=== PATIENT | female | born 1945 | race Two or more races ===

== ENCOUNTER → 2018-02-09 | Outpatient (CLI) | payer OTHER | END | disposition home or self-care (01) | LOC: KCIC MRI 08:43 | DX: R51 Headache (principal); I10 Essential (primary) hypertension; E78.5 Hyperlipidemia, unspecified; Z83.71 Family history of colonic polyps | CPT/HCPCS: 70551 ==

== ENCOUNTER 2021-03-23 07:30 | Day surgery (SDC) | payer MEDICARE ==
[~2021-03-23] VITALS: Ht 154.9 cm; Wt 47.0 kg
[~2021-03-23 07:30] MED LIST: ATOR10TA PO; IV RINGERS,LACTATED 1000ML 1,000 ML IV SCH
[2021-03-23 09:01] VITALS: BP 127/64
[2021-03-23] MEDS ORDERED: PROPOFOL 10 MG/ML (20ML) VIAL. IV ONE (10:06)
[2021-03-23] MEDS ORDERED: LIDOCAINE 2% PF 5 ML VIAL. ONE (10:06)
[2021-03-23 10:24] VITALS: BP 143/68
--- NOTE | 2021-03-25 03:03 | HP ---
ADMIT DATE: 03/23/2021 REFERRING PHYSICIAN: JANNETTE Bonner. HISTORY OF PRESENT ILLNESS: A 75-year-old female whose past medical history is significant for hyperlipidemia, history of polyps ____ diarrhea or constipation. There is no melena. There is no hematochezia. No dysphagia. There is no evidence of Diana's. She is not on any present medications for it. She is otherwise without additional complaints. PAST MEDICAL HISTORY: Diana's, history of colonic polyps, hyperlipidemia. ALLERGIES: None. MEDICATIONS: Include atorvastatin daily. FAMILY HISTORY: Significant for diabetes in the father. PAST SURGICAL HISTORY: Appendectomy, tubal ligation, eye surgery. REVIEW OF SYSTEMS: Per records. PHYSICAL EXAMINATION: GENERAL: Reveals a well-nourished, well-developed female who is alert, cooperative, in no acute distress. VITAL SIGNS: Temperature is 97.4, pulse 56, respirations 20. LUNGS: Clear. CARDIOVASCULAR: Reveals an S1, S2, without S3, S4 or appreciable murmur. ABDOMEN: Reveals a soft abdomen, normal bowel sounds, without appreciable hepatosplenomegaly. EXTREMITIES: Reveals no cyanosis, clubbing or edema. IMPRESSION AND PLAN: 1. History of Diana's. Surveillance EGD is recommended at this time. Risks and benefits were previously discussed. The patient is willing to proceed. 2. History of colonic polyps. Interval colon exam is recommended. Risks and benefits discussed. The patient is willing to proceed. HU/ALAN/JUAN MANUEL DR: Eusebio TID: [id number]
--- NOTE | 2021-03-26 13:07 | PATHOLOGY ---
[facility] Accession Number: [id number] . 01 Material submitted: . PART A: esophagus - DISTAL ESOPHAGEAL BIOPSY. Modifiers: distal PART B: colon - TRANSVERSE COLON POLYP BIOPSY. Modifiers: transverse . 01 Clinical history: . HX RASHEED'S/HX, COLON POLYPS EGD/COLON . 02 Diagnosis: A. Esophageal biopsies, distal esophagus: - Segments of mildly hyperplastic squamous esophageal mucosa. . B. Colon biopsies, transverse colon polyp: - Hyperplastic polyp/prominent mucosal fold. (JPM:jones; 03/26/2021) S 03/26/2021 1155 Local . 02 Comment: Sections of the distal esophageal biopsy reveal segments of mildly hyperplastic squamous esophageal mucosa, consistent with reflux esophagitis. There is no evidence of Rasheed's change, dysplasia, or malignancy. . Sections of the transverse colon biopsy reveal segments of colonic mucosa consistent with hyperplastic polyp/prominent mucosal fold. There are no adenomatous changes or evidence of malignancy. (JPM:jones; 03/26/2021) . 02 Electronically signed: . Saeid Mchugh MD, Pathologist NPI- [id number] . 01 Gross description: . A. The specimen is received in formalin, labeled "Iam Nick, distal esophagus". It consists of multiple brown-white, irregular soft tissue fragments measuring 0.6 x 0.5 x 0.1 cm in aggregate. The specimen is entirely submitted between sponges in A1. . B. The specimen is received in formalin, labeled "Iam Nick J, transverse colon polyp". It consists of 3 brown irregular soft tissue fragments measuring 0.4 x 0.4 x 0.2 cm in aggregate. The specimen is entirely submitted between sponges in B1. (MRF; 03/23/2021) MFE/MFE 03/23/[address] [place] [address] . 02 Pathologist provided ICD-10: K63.5 . 02 CPT . 373163, [id number] Specimen Comment: A courtesy copy of this report has been sent to [phone] Specimen Comment: Report sent to DR. COOL Performed at: [address] [facility] [address] [facility] [address], [place] [id number] MD Lai Hurst MD Phone: [phone] Performed at: 02 [facility] [address], [place] [id number] MD Saeid Mchugh MD Phone: [phone]
== END 2021-03-23 10:42 | disposition home or self-care (01) ==
LOC: ENDOS 07:30
PROVIDERS: ATTEND Internal Medicine Gastroenterology
DX: Z12.11 Encounter for screening for malignant neoplasm of colon (principal); K64.0 First degree hemorrhoids; K63.5 Polyp of colon; K21.00 Gastro-esophageal reflux disease with esophagitis, without bleeding; K22.70 Barrett's esophagus without dysplasia; K31.89 Other diseases of stomach and duodenum; K63.89 Other specified diseases of intestine; E78.00 Pure hypercholesterolemia, unspecified; Z86.010 Personal history of colon polyps; Z98.51 Tubal ligation status; Z98.890 Other specified postprocedural states; Z79.899 Other long term (current) drug therapy; Z72.89 Other problems related to lifestyle
CPT/HCPCS: 43239; 45380; J2704; 88305